=== PATIENT | female | born 1965 | race Caucasian/White ===

== ENCOUNTER → 2017-09-13 | Outpatient (CLI) | payer OTHER ==
[~2017-09-13] MED LIST: CYMBALTA30 MG PO; ELAVIL25 MG PO; FENOFIBRATE54 M1 PO; FLOMAX0.4 MG PO; LIPITOR20 MG PO; MEDROL DOSEPAK4 MG PO; MOBIC15 MG PO; NEUPRO1 EAC1 TD; PERCOCET 5/31 TABLET PO; PREMARIN0.625 MG PO; TOPAMAX50 MG PO; ULTRAM50 MG PO; ZOFRAN ODT4 MG PO
== END | disposition home or self-care (01) ==
LOC: RAD 12:23
DX: R07.1 Chest pain on breathing (principal); I49.3 Ventricular premature depolarization
CPT/HCPCS: 75574